=== PATIENT | female | born 1960 | race Caucasian/White ===

== ENCOUNTER 2016-06-07 10:45 | Emergency (ER) | payer OTHER ==
[~2016-06-07] VITALS: Ht 165.1 cm; Wt 54.5 kg
[~2016-06-07 10:45] MED LIST: ALBUTEROL0.09 MG/A1 IH; CALCIUM1 CAP PO; CEFTIN250 MG PO; CETIRIZINE; COLACE 100100 MG/CAP PO; FERROUS SU325 MG/TAB PO; LAMICTAL PO; LIPITOR 10MG10 MG PO; LORTAB 7.5/5001 TAB PO; MIRALAX 17GM PK1 PKT PO; PERCOCET 325 MG1 TA2 PO; PRILOSEC10 MG PO; PULMICORT0.5 MG/21 IH; SEROQUEL 200MG200 MG PO; SEROQUEL PO; SINGULAIR 110 MG/TAB PO; SINGULAIR PO; VITAMIN D NATU400 IU PO; ZANTAC 300300 MG PO; ZOFRAN4 MG PO; ZOLOFT; ZOLOFT 100MG100 MG PO; [UNRECOGNIZED DRUG - OTHER]; [UNRECOGNIZED DRUG - REMARK]; [UNRECOGNIZED DRUG - REMARK]; [UNRECOGNIZED DRUG - REMARK]
[2016-06-07 11:33] LABS: BASO % 0.9 % (0.0-2.0); EOS % 0.3 % (0-4.0); GRAN # 2.1 (1.4-6.5); GRAN % 63.2 % (42.2-75.2); LYMPH # 0.9 (1.2-3.4); MEAN CELL VOLUME 95 fl (80.0-100.0); MEAN CORPUSCULAR HGB CONC 32 g/dl (33.0-37.0); MEAN PLATELET VOLUME 9.3 fl (7.4-10.4); MONO # 0.3 (0.1-0.6); PLATELET COUNT 266 K/mm3 (130-400); RED BLOOD COUNT 3.88 M/mm3 (4.10-5.30); REDCELL DISTRIBUTION WIDTH-CV 13.9 % (11.5-14.5); WHITE BLOOD COUNT 3.3 K/mm3 (4.8-10.8)
[2016-06-07 11:34] LABS: HEMATOCRIT 36.8 % (37.0-47.0); HEMOGLOBIN 11.7 g/dl (12.5-16.0); MEAN CORPUSCULAR HEMOGLOBIN 30 pg (27.0-31.0)
[2016-06-07 11:48] LABS: ADJUSTED CALCIUM 9.4 mg/dL (8.4-10.2); ALANINE AMINOTRANSFERASE 29 U/L (9-52); ALBUMIN 4.4 gm/dL (3.5-5.0); ALKALINE PHOSPHATASE 70 U/L (50-136); ANION GAP 11 mmol/L (7-16); BILIRUBIN,TOTAL 0.6 mg/dL (0.0-1.0); BLOOD UREA NITROGEN 11 mg/dL (7-17); CALCIUM 9.7 mg/dL (8.4-10.2); CARBON DIOXIDE 29 mmol/L (22-30); CHLORIDE 102 mmol/L (98-107); CREATININE, serum 0.87 mg/dL (0.52-1.25); GLUCOSE 99 mg/dL (74-106); POTASSIUM 4.1 mmol/L (3.4-5.0); SODIUM 142 mmol/L (137-145); TOTAL PROTEIN 7.4 gm/dL (6.4-8.2)
[2016-06-07 11:58] LABS: C-REACTIVE PROTEIN < 0.5 mg/dL (0.0-0.9); TROPONIN-I < 0.012 ng/mL (0.000-0.034)
[2016-06-07] MEDS ORDERED: ATIVAN 0.50.5 MG/TAB PO (13:42)
[2016-06-07 14:06] VITALS: BP 114/7; PULSE 82; TEMP 98.2
== END 2016-06-07 14:13 | disposition home or self-care (01) ==
LOC: COL.ER 10:45
PROVIDERS: Emergency Medicine
DX: H53.2 Diplopia (principal); F41.9 Anxiety disorder, unspecified
CPT/HCPCS: A9585

== ENCOUNTER 2018-02-06 12:29 | Emergency (ER) | payer BC ==
[~2018-02-06] VITALS: Ht 165.1 cm; Wt 55.5 kg
[~2018-02-06 12:29] MED LIST changes: +ATIVAN 0.50.5 MG/TAB PO
[2018-02-06 12:35] VITALS: TEMP 98.2
[2018-02-06 13:25] LABS: BASO % 0.5 % (0.0-2.0); GRAN # 2.9 (1.4-6.5); GRAN % 69.2 % (42.2-75.2); HEMATOCRIT 37.4 % (37.0-47.0); HEMOGLOBIN 12.2 g/dl (12.5-16.0); LYMPH % 23.4 % (20.0-51.0); MEAN CELL VOLUME 96 fl (80.0-100.0); MEAN CORPUSCULAR HEMOGLOBIN 31 pg (27.0-31.0); MEAN CORPUSCULAR HGB CONC 33 g/dl (33.0-37.0); MEAN PLATELET VOLUME 9.1 fl (7.4-10.4); MONO # 0.3 (0.1-0.6); MONO % 6.7 % (1.7-9.3); PLATELET COUNT 232 K/mm3 (130-400); RED BLOOD COUNT 3.89 M/mm3 (4.10-5.30)
[2018-02-06 13:36] LABS: ALANINE AMINOTRANSFERASE 42 U/L (9-52); ALBUMIN 4.7 gm/dL (3.5-5.0); ALKALINE PHOSPHATASE 58 U/L (50-136); ANION GAP 7 mmol/L (7-16); AST,SGOT 26 U/L (15-37); BILIRUBIN,TOTAL 0.4 mg/dL (0.0-1.0); BLOOD UREA NITROGEN 13 mg/dL (7-17); CALCIUM 9.5 mg/dL (8.4-10.2); CARBON DIOXIDE 32 mmol/L (22-30); CHLORIDE 98 mmol/L (98-107); CREATININE, serum 0.92 mg/dL (0.52-1.25); GLUCOSE 89 mg/dL (74-106); POTASSIUM 4.2 mmol/L (3.4-5.0); SODIUM 137 mmol/L (137-145); TOTAL PROTEIN 7.7 gm/dL (6.4-8.2)
[2018-02-06 13:37] LABS: C-REACTIVE PROTEIN < 0.5 mg/dL (0.0-0.9)
[2018-02-06 13:58] LABS: COLLECTION METHOD CLEAN CATCH
[2018-02-06 14:07] LABS: MUCOUS Present /lpf; PH 5 (5-8); URINE APPEARANCE Clear; URINE BACTERIA Rare /hpf; URINE BILIRUBIN Negative (NEGATIVE); URINE BLOOD Negative (NEGATIVE); URINE COLOR Yellow; URINE GLUCOSE Negative (NEGATIVE); URINE KETONE Negative (NEGATIVE); URINE LEUKOCYTE ESTERASE Negative (NEGATIVE); URINE NITRATE Negative (NEGATIVE); URINE PROTEIN(semi-quant) Negative (NEGATIVE); URINE RBC 0-2 /hpf; URINE UROBILINOGEN Negative (NEGATIVE)
[2018-02-06 14:39] VITALS: BP 111/77; PULSE 85
== END 2018-02-06 14:42 | disposition home or self-care (01) ==
LOC: COL.ER 12:29
PROVIDERS: Family Medicine
DX: R53.1 Weakness (principal); R41.3 Other amnesia

== ENCOUNTER → 2018-03-18 | Outpatient (CLI) | payer BC | LOC: MC.RAD 14:20 | DX: Z12.31 Encounter for screening mammogram for malignant neoplasm of breast (principal) ==

== ENCOUNTER 2018-05-01 21:02 | Emergency (ER) | payer BC ==
[~2018-05-01] VITALS: Ht 165.1 cm; Wt 55.0 kg
[~2018-05-01 21:02] MED LIST changes: +CELEXA10 MG PO; +ESTRACE 1MG1 MG/TAB PO; -LAMICTAL PO; +LAMICTAL XR200 MG PO; +LAMICTAL XR300 MG PO; +LATUDA80 MG PO; +LEXAPRO 5MG5 MG; +MIRALAX PA17 GM/Dose PO; +WELLBUTRIN XL150 MG PO; +WELLBUTRIN XL300 M1 PO
[2018-05-01] MEDS ORDERED: AMOXICILLIN 8751 TAB PO (21:41)
[2018-05-01 22:06] VITALS: BP 115/68; PULSE 82; TEMP 97
== END 2018-05-01 22:09 | disposition home or self-care (01) ==
LOC: COL.ER 21:02
DX: S61.253A Open bite of left middle finger without damage to nail, initial encounter (principal); F31.9 Bipolar disorder, unspecified; W53.11XA Bitten by rat, initial encounter; Y92.009 Unspecified place in unspecified non-institutional (private) residence as the place of occurrence of the external cause
CPT/HCPCS: J0696

== ENCOUNTER 2018-11-14 15:28 | Emergency (ER) | payer BC ==
[~2018-11-14] VITALS: Ht 165.1 cm; Wt 54.5 kg
[~2018-11-14 15:28] MED LIST changes: +AMOXICILLIN 8751 TAB PO
[2018-11-14 15:32] VITALS: BP 129/62; TEMP 98.9
[2018-11-14 16:56] VITALS: PULSE 72
== END 2018-11-14 16:45 | disposition home or self-care (01) ==
LOC: COL.ER 15:28
DX: S61.215A Laceration without foreign body of left ring finger without damage to nail, initial encounter (principal); F31.9 Bipolar disorder, unspecified; E78.5 Hyperlipidemia, unspecified; Z88.6 Allergy status to analgesic agent; W26.0XXA Contact with knife, initial encounter; Y92.009 Unspecified place in unspecified non-institutional (private) residence as the place of occurrence of the external cause

== ENCOUNTER 2019-02-20 11:11 | Emergency (ER) | payer BC ==
[~2019-02-20] VITALS: Ht 165.1 cm; Wt 54.5 kg
[2019-02-20 11:16] VITALS: TEMP 97.1
[2019-02-20 12:02] LABS: COLLECTION METHOD CLEAN CATCH
[2019-02-20 12:10] LABS: BASO % 0.9 % (0.0-2.0); GRAN # 1.9 (1.4-6.5); GRAN % 57.5 % (42.2-75.2); HEMATOCRIT 38.5 % (37.0-47.0); HEMOGLOBIN 12.4 g/dl (12.5-16.0); LYMPH % 31.1 % (20.0-51.0); MEAN CELL VOLUME 98 fl (80.0-100.0); MEAN CORPUSCULAR HEMOGLOBIN 32 pg (27.0-31.0); MEAN CORPUSCULAR HGB CONC 32 g/dl (33.0-37.0); MEAN PLATELET VOLUME 9.5 fl (7.4-10.4); MONO # 0.3 (0.1-0.6); MONO % 10.2 % (1.7-9.3); PLATELET COUNT 210 K/mm3 (130-400); RED BLOOD COUNT 3.92 M/mm3 (4.10-5.30); REDCELL DISTRIBUTION WIDTH-CV 13.2 % (11.5-14.5)
[2019-02-20 12:16] LABS: MUCOUS Present /lpf; PH 7 (5-8); SQUAMOUS EPITHELIAL 0-2 /hpf; URINE APPEARANCE Clear; URINE BACTERIA None Seen /hpf; URINE BILIRUBIN Negative (NEGATIVE); URINE BLOOD Negative (NEGATIVE); URINE COLOR Yellow; URINE GLUCOSE Negative (NEGATIVE); URINE KETONE Negative (NEGATIVE); URINE LEUKOCYTE ESTERASE Negative (NEGATIVE); URINE NITRATE Negative (NEGATIVE); URINE PROTEIN(semi-quant) Negative (NEGATIVE); URINE RBC 0-2 /hpf; URINE UROBILINOGEN Negative (NEGATIVE)
[2019-02-20 12:18] LABS: ALANINE AMINOTRANSFERASE 19 U/L (9-52); ALBUMIN 4.7 gm/dL (3.5-5.0); ALKALINE PHOSPHATASE 59 U/L (50-136); ANION GAP 11 mmol/L (7-16); AST,SGOT 27 U/L (15-37); BILIRUBIN,TOTAL 0.4 mg/dL (0.0-1.0); BLOOD UREA NITROGEN 13 mg/dL (7-17); CALCIUM 9.4 mg/dL (8.4-10.2); CARBON DIOXIDE 29 mmol/L (22-30); CHLORIDE 101 mmol/L (98-107); CREATININE, serum 0.82 (0.52-1.25); GLUCOSE 84 mg/dL (74-106); LIPASE 48 U/L (23-300); POTASSIUM 4.1 mmol/L (3.4-5.0); SODIUM 140 mmol/L (137-145); TOTAL PROTEIN 7.7 gm/dL (6.4-8.2)
[2019-02-20 12:22] LABS: C-REACTIVE PROTEIN < 0.5 mg/dL (0.0-0.9)
[2019-02-20 14:56] VITALS: BP 105/65; PULSE 83
== END 2019-02-20 14:57 | disposition home or self-care (01) ==
LOC: COL.ER 11:11
PROVIDERS: Family Medicine
DX: K59.00 Constipation, unspecified (principal)
CPT/HCPCS: J1170; J2405; J7030; Q9967

== ENCOUNTER → 2019-05-22 | Outpatient (CLI) | payer BC | LOC: MC.RAD 08:53 | DX: Z12.31 Encounter for screening mammogram for malignant neoplasm of breast (principal) ==

== ENCOUNTER → 2020-09-07 | Outpatient (CLI) | payer BC | LOC: MC.RAD 14:45 | DX: Z12.31 Encounter for screening mammogram for malignant neoplasm of breast (principal) ==

== ENCOUNTER → 2022-01-26 | Outpatient (CLI) | payer BC | LOC: MC.RAD 13:38 | DX: Z12.31 Encounter for screening mammogram for malignant neoplasm of breast (principal) ==

== ENCOUNTER 2023-03-14 21:23 | Inpatient (IN) | payer BC ==
[~2023-03-14] VITALS: Ht 165.1 cm; Wt 58.0 kg
[2023-03-14 22:13] LABS: BASO % 0.7 % (0.0-2.0); EOS % 0.7 % (0.0-4.0); GRAN # 2.9 K/mm3 (1.4-6.5); GRAN % 65.1 % (42.2-75.2); LYMPH # 1.1 K/mm3 (1.2-3.4); LYMPH % 24.4 % (20.0-51.0); MEAN CELL VOLUME 96 fl (80.0-100.0); MEAN CORPUSCULAR HEMOGLOBIN 31 pg (27-31); MEAN CORPUSCULAR HGB CONC 33 g/dl (33.0-37.0); MEAN PLATELET VOLUME 9.6 fl (7.4-10.4); MONO # 0.4 K/mm3 (0.1-0.6); MONO % 8.7 % (1.7-9.3); PLATELET COUNT 235 K/mm3 (130-400); RED BLOOD COUNT 3.82 M/mm3 (4.10-5.30); REDCELL DISTRIBUTION WIDTH-CV 12.9 % (11.5-14.5)
[2023-03-14 22:15] LABS: HEMATOCRIT 36.7 % (37.0-47.0)
[2023-03-14 22:28] LABS: ALBUMIN 3.7 gm/dL (3.4-4.8); BILIRUBIN,TOTAL 0.3 mg/dL (0.2-1.2); CALCIUM 8.7 mg/dL (8.4-10.2); CREATININE, serum 0.85 mg/dL (0.57-1.11); POTASSIUM 3.8 mmol/L (3.5-4.5); TOTAL PROTEIN 6.2 gm/dL (6.2-8.1)
[2023-03-14 23:02] LABS: COLLECTION METHOD CLEAN CATCH
[2023-03-14] MEDS ORDERED: SEROQUEL50 MG PO (23:05)
[2023-03-14] MEDS ORDERED: MINOXIDIL 2.5 PO (23:06)
[2023-03-14] MEDS ORDERED: MULTI VITAMINS1 TAB PO (23:08)
[2023-03-14 23:19] LABS: SQUAMOUS EPITHELIAL 0-2 /hpf (0-10); URINE APPEARANCE Clear (CLEAR/HAZY); URINE BLOOD TRACE-INTACT (NEGATIVE); URINE COLOR Yellow (YELLOW); URINE GLUCOSE Negative (NEGATIVE); URINE KETONE Negative (NEGATIVE); URINE NITRATE Negative (NEGATIVE); URINE PROTEIN(semi-quant) Negative (NEGATIVE); URINE UROBILINOGEN 0.2 E.U/dL (0.2-1.0)
[2023-03-14 23:20] LABS: URINE BACTERIA None Seen /hpf (NONE SEEN)
[2023-03-14] MEDS ORDERED: LEXAPRO20 MG PO (23:32)
[2023-03-15] VITALS (18 sets, daily range): BP systolic 98–129; BP diastolic 45–74; PULSE 15–77; TEMP 98–98.5
--- NOTE | 2023-03-15 | NUR ---
ADMITTED PT TO ROOM 329 VIA CART FROM ED. IS ALERT AND ORIENTED X4. HAS ABRASIONS TO RT HAND, LT ELBOW AND LT HIP. MOVED FROM CART TO BED WITH ASSIST OF 3 STAFF, TOLERATED WELL. PLACED IN FALL PRECAUTIONS. HAS INT TO LAC. ADMISSION QUESTIONS INITIATED.
--- NOTE | 2023-03-15 01:36 | NUR ---
HS MEDS GIVEN INCLUDING MORPHINE 4MG IVP FOR LT HIP PAIN. WILL BE NPO NOW.
--- NOTE | 2023-03-15 04:55 | NUR ---
PT REPORTS LT HIP PAIN, MORPHINE 4MG IVP GIVEN.
[2023-03-15 05:50] LABS: BASO % 0.3 % (0.0-2.0); EOS % 0.3 % (0.0-4.0); GRAN # 4.5 K/mm3 (1.4-6.5); GRAN % 70.8 % (42.2-75.2); HEMOGLOBIN 11.6 g/dl (12.5-16.0); LYMPH # 1.2 K/mm3 (1.2-3.4); LYMPH % 18.6 % (20.0-51.0); MEAN CELL VOLUME 95 fl (80.0-100.0); MEAN CORPUSCULAR HEMOGLOBIN 31 pg (27-31); MEAN CORPUSCULAR HGB CONC 33 g/dl (33.0-37.0); MEAN PLATELET VOLUME 9.8 fl (7.4-10.4); MONO # 0.6 K/mm3 (0.1-0.6); MONO % 9.5 % (1.7-9.3); PLATELET COUNT 206 K/mm3 (130-400); RED BLOOD COUNT 3.75 M/mm3 (4.10-5.30); REDCELL DISTRIBUTION WIDTH-CV 12.8 % (11.5-14.5)
[2023-03-15 05:51] LABS: CALCIUM 8.6 mg/dL (8.4-10.2); CREATININE, serum 0.82 mg/dL (0.57-1.11); POTASSIUM 3.9 mmol/L (3.5-4.5)
[2023-03-15 05:53] LABS: HEMATOCRIT 35.5 % (37.0-47.0)
[2023-03-15] MEDS ORDERED: CALCIUM-500 5001 CTB PO (09:29)
--- NOTE | 2023-03-15 12:44 | NUR ---
Fuel Technician met with patient to discuss discharge planning. Patient advised she believes she may be having surgery today but hasn't heard yet for sure. Patient lives in [place] with her , Bill (ph#[phone]) who is at bedside. Patient sees Dr. Robins for primary care and obtains medications from [facility] pharmacy with no difficulties. Patient does not normally use any DME and is independent with [facility]. Patient was interested in completing DPOA-HC and designating her , Bill and son, Chirag. MADY assisted patient in completing the form, then MADY and MADY Faye provided witness signature. SW placed copy in chart then provided original and copies to patient. Patient inquired about possibly needing rehab or certain DME after her surgery and MADY advised that PT/OT will evaluate her and make recommendations, which SW will assist with. Discharge Plan: Pending PT/OT evals after surgery
--- NOTE | 2023-03-15 13:34 | NUR ---
PT TO SURGERY PER BED.
--- NOTE | 2023-03-15 16:03 | NUR ---
PT TO ROOM 329 PER BED WITH REPORT FROM NICOLASA PITTMAN @[id number]. PT IS DROWSEY BUT AROUSES TO VERBAL. IV TO LAC. DRESSING TO LEFT HIP CDI WITH GAUZE AND TEGADERM OVER INCISION. PT'S AT BEDSIDE.
--- NOTE | 2023-03-15 19:00 | NUR ---
PT IN BED, IS AWAKE, ALERT. FAMILY AT BEDSIDE. IVF TO LAC INFUSING WITHOUT PROBLEM. PT WAITING FOR DINNER. DRSG TO LT HIP WITH PEA SIZE DRAINAGE NOTED, ICE PACK IN PLACE. HERNANDEZ TO BSD WITH YELLOW URINE. REPORTS PAIN RELIEF WITH NORCO.
[2023-03-16] VITALS (12 sets, daily range): BP systolic 97–122; BP diastolic 55–63; PULSE 73–82; TEMP 98.4–99.3
--- NOTE | 2023-03-16 00:07 | NUR ---
PT ASKING FOR PAIN MEDS, 6/10 PAIN SCORE TO LT HIP. NORCO GIVEN. REPLACED ICE PACK AND REPOSITIONED PT IN BED.
--- NOTE | 2023-03-16 05:34 | NUR ---
MEDICATED WITH NORCO 7.5MG PO FOR LT HIP PAIN. REPOSITIONED IN BED.
--- NOTE | 2023-03-16 11:18 | NUR ---
Costumed Character met with patient to discuss PT recommendation for home with outpatient PT services. Patient is in agreement with this, however she does not think she is ready for discharge yet today. Patient is aware of local outpatient PT options, however isn't sure where she wants to set up services yet. Patient advised her secured a walker for her and that her son is building a wheelchair ramp into the home. Discharge Plan: Home, outpatient PT
--- NOTE | 2023-03-16 11:20 | NUR ---
Pt resting in bed. Call light placed within reach. No acute concerns at this time.
[2023-03-17 03:44] VITALS: BP 117/58; PULSE 83; TEMP 98.9
[2023-03-17 07:05] LABS: BASO % 0.3 % (0.0-2.0); EOS # 0.1 K/mm3 (0.0-0.7); GRAN # 4.3 K/mm3 (1.4-6.5); GRAN % 73.2 % (42.2-75.2); HEMOGLOBIN 11.9 g/dl (12.5-16.0); LYMPH # 0.9 K/mm3 (1.2-3.4); LYMPH % 14.6 % (20.0-51.0); MEAN CELL VOLUME 92 fl (80.0-100.0); MEAN CORPUSCULAR HEMOGLOBIN 31 pg (27-31); MEAN CORPUSCULAR HGB CONC 34 g/dl (33.0-37.0); MEAN PLATELET VOLUME 10.1 fl (7.4-10.4); MONO # 0.6 K/mm3 (0.1-0.6); MONO % 10.7 % (1.7-9.3); PLATELET COUNT 203 K/mm3 (130-400); RED BLOOD COUNT 3.84 M/mm3 (4.10-5.30); REDCELL DISTRIBUTION WIDTH-CV 12.8 % (11.5-14.5)
[2023-03-17 07:07] LABS: HEMATOCRIT 35.4 % (37.0-47.0)
[2023-03-17 07:21] LABS: CALCIUM 8.9 mg/dL (8.4-10.2); CREATININE, serum 0.74 mg/dL (0.57-1.11); POTASSIUM 3.7 mmol/L (3.5-4.5)
[2023-03-17 08:00] VITALS: BP 110/61; PULSE 74; TEMP 98.3
--- NOTE | 2023-03-17 08:11 | NUR ---
Pt. in bed. Pt. is A&OX3, assessment complete. INT to lt. ac patent. So catheter to DD, Clear urine noted. Pt. denies pain or other needs, call light within reach.
[2023-03-17 09:00] VITALS: BP_SYST 110
[2023-03-17] MEDS ORDERED: XARELTO10 MG PO (09:49)
[2023-03-17] MEDS ORDERED: VITAMIN C500 MG PO (09:50)
[2023-03-17] MEDS ORDERED: NORCO 325 MG-7.1 TAB PO (10:00)
--- NOTE | 2023-03-17 11:40 | NUR ---
Director Of Nuclear Medicine rounds: Patient had a visitor (?) and ZAIN Lamas in her room. Patient declined Director Of Nuclear Medicine services because her Superintendent Circus had visited yesterday. Superintendent Circus is from [facility].
[2023-03-17 13:00] VITALS: BP_SYST 110
--- NOTE | 2023-03-17 15:45 | NUR ---
Pt. ready for discharge at this time. INT discontinued from lt. ac. Pt. assisted with getting dressed. Reviewed and gave discharge paperwork to the pt. Pt. voices understanding. Pt. escorted out by wheel chair.
== END 2023-03-17 15:45 | disposition home or self-care (01) | DRG 482 ==
LOC: COL.ER 21:23 → SURG 23:02
PROVIDERS: Emergency Medicine; Orthopaedic Surgery; Physician Assistant; ADMIT Internal Medicine
PROC: 0QS734Z Reposition Left Upper Femur with Internal Fixation Device, Percutaneous Approach (ICD-10-PCS; principal; 2023-03-15 14:00)
DX: S72.002A Fracture of unspecified part of neck of left femur, initial encounter for closed fracture (principal); D50.9 Iron deficiency anemia, unspecified; F31.9 Bipolar disorder, unspecified; W18.39XA Other fall on same level, initial encounter; I10 Essential (primary) hypertension; E78.00 Pure hypercholesterolemia, unspecified; Y93.89 Activity, other specified; Z88.6 Allergy status to analgesic agent; Y92.89 Other specified places as the place of occurrence of the external cause; Z90.710 Acquired absence of both cervix and uterus; Z79.899 Other long term (current) drug therapy
CPT/HCPCS: A9270; A9284; C1713; J0665; J0690; J2250; J2270; J2704; J2795; J3010; J7040; J7120

== ENCOUNTER → 2023-06-12 | Outpatient (CLI) | payer BC ==
[~2023-06-12] MED LIST changes: +CALCIUM-500 5001 CTB PO; +LEXAPRO20 MG PO; +MINOXIDIL 2.5 PO; +MULTI VITAMINS1 TAB PO; +NORCO 325 MG-7.1 TAB PO; +SEROQUEL50 MG PO; +VITAMIN C500 MG PO; +XARELTO10 MG PO
== END ==
LOC: MC.RAD 10:52
DX: Z12.31 Encounter for screening mammogram for malignant neoplasm of breast (principal)

== ENCOUNTER → 2023-07-05 | Outpatient (CLI) | payer BC ==
[~2023-07-05] MED LIST changes: +Iohexol 300 - 100 ML VIAL IV ONE; +NS 100 ML IV SCH
== END ==
LOC: COL.RAD 13:13
DX: Z12.11 Encounter for screening for malignant neoplasm of colon (principal); K80.20 Calculus of gallbladder without cholecystitis without obstruction; R10.32 Left lower quadrant pain
CPT/HCPCS: Q9967